=== PATIENT | female | born 2005 | race Caucasian/White ===

== ENCOUNTER 2023-08-15 18:10 | Emergency (ER) | payer OTHER ==
[2023-08-15 18:33] VITALS: TEMP 98.1
--- NOTE | 2023-08-15 19:16 | ED ---
General Adult HPI - General Source: patient, RN notes reviewed Mode of arrival: ambulatory Limitations: no limitations <Jennifer Del Real - Last Filed: 08/15/23 19:12> <Tino Jules - Last Filed: 09/06/23 18:40> - General Chief complaint: Vaginal Bleeding Stated complaint: Vag Bleeding Time Seen by Provider: 08/15/23 19:00 - History of Present Illness Initial comments: Quick note: 18-year-old female presents to the emergency department for evaluation of vaginal bleeding. Patient states that this has been going on for around 2 weeks. She notes that today the bleeding has gotten significantly worse. She admits to some lightheadedness. (Jennifer Del Real) - Related Data Allergies Allergy/AdvReac Type Severity Reaction Status Date / Time No Known Allergies Allergy Verified 08/15/23 18:33 Review of Systems ROS Other: All systems not noted in ROS Statement are negative. <Jennifer Del Real - Last Filed: 08/15/23 19:12> ROS Other: All systems not noted in ROS Statement are negative. <Tino Jules - Last Filed: 09/06/23 18:40> ROS Statement: Those systems with pertinent positive or pertinent negative responses have been documented in the HPI. Past Medical History Past Medical History: No Reported History History of Any Multi-Drug Resistant Organisms: None Reported Past Surgical History: No Surgical Hx Reported Past Psychological History: No Psychological Hx Reported Smoking Status: Never smoker Past Alcohol Use History: None Reported Past Drug Use History: None Reported <Jennifer Del Real - Last Filed: 08/15/23 19:12> General Exam Limitations: no limitations <Jennifer Del Real - Last Filed: 08/15/23 19:12> Limitations: no limitations General appearance: alert, in no apparent distress Head exam: Present: atraumatic, normocephalic Eye exam: Present: normal appearance. Absent: scleral icterus, conjunctival injection Respiratory exam: Present: normal lung sounds bilaterally. Absent: respiratory distress, wheezes, rales, rhonchi, stridor, accessory muscle use Cardiovascular Exam: Present: regular rate, normal rhythm, normal heart sounds. Absent: systolic murmur, diastolic murmur, rubs, gallop GI/Abdominal exam: Present: soft. Absent: distended, tenderness, guarding, rebound, rigid, mass Extremities exam: Present: normal inspection, normal capillary refill. Absent: pedal edema, calf tenderness Back exam: Present: normal inspection. Absent: CVA tenderness (R), CVA tenderness (L) Neurological exam: Present: alert Skin exam: Present: warm, dry, intact, normal color. Absent: rash <Tino Jules - Last Filed: 09/06/23 18:40> - General Exam Comments Initial Comments: Visual Physical Exam Vital signs reviewed General: Well-appearing, nontoxic, no acute distress. Head: Normocephalic, atraumatic Eyes: PERRLA, EOMI ENT: Airway patent Chest: Nonlabored breathing Skin: No visual rash, normal skin tone Neuro: Alert and oriented 3 Musculoskeletal: No gross abnormalities (Jennifer Del Real) Course Vital Signs 08/15/23 08/15/23 08/15/23 18:31 22:12 23:38 Temperature 98.1 F Pulse Rate 75 77 74 Respiratory 18 18 16 Rate Blood Pressure 147/80 122/81 127/82 O2 Sat by Pulse 99 100 100 Oximetry Medical Decision Making <Jennifer Del Real - Last Filed: 08/15/23 19:12> - Lab Data Result diagrams: 08/15/23 22:10 08/15/23 22:10 <Tino Jules - Last Filed: 09/06/23 18:40> - Medical Decision Making Quick note preformed and electronically signed by Jennifer Del Real PA-C (Jennifer Del Real) The patient had pelvic ultrasound which I interpreted as negative for ovarian torsion Was pt. sent in by a medical professional or institution ([facility], COMPLIANCE REPRESENTATIVE DEALER, urgent care, hospital, or retirement...) When possible be specific @ -[No] Did you speak to anyone other than the patient for history (EMS, parent, family, police, friend...)? What history was obtained from this source @ -[No] Did you review nursing and triage notes (agree or disagree)? Why? @ -[I reviewed and agree with nursing and triage notes] Were old charts reviewed (outside hosp., previous admission, EMS record, old EKG, old radiological studies, urgent care reports/EKG's, retirement records)? Report findings @ -[No old charts were reviewed] Differential Diagnosis (chest pain, altered mental status, abdominal pain women, abdominal pain men, vaginal bleeding, weakness, fever, dyspnea, syncope, headache, dizziness, GI bleed, back pain, seizure, CVA, palpatations, mental health, musculoskeletal)? @ -[Differential Vaginal Bleeding: Spontaneous , threatened , molar , ectopic , bloody show, incompetent cervix, abruptioplacenta, placenta previa, uterine rupture, dysfunctional uterine bleeding, hemorrhage, uterine fibroids, this is not meant to be an all-inclusive list. EKG interpreted by me (3pts min.). @ -[As above] X-rays interpreted by me (1pt min.). @ -[None done] CT interpreted by me (1pt min.). @ -[None done] U/S interpreted by me (1pt. min.). @ -[I interpreted as above What testing was considered but not performed or refused? (CT, X-rays, U/S, labs)? Why? @ -[None] What meds were considered but not given or refused? Why? @ -[None] Did you discuss the management of the patient with other professionals (professionals i.e. , PA, COMPLIANCE REPRESENTATIVE DEALER, lab, RT, psych nurse, professor of social work, bulk tank car unloader, teacher, building drafting officer, case maker)? Give summary @ -[No] Was smoking cessation discussed for >3mins.? @ -[No] Was critical care preformed (if so, how long)? @ -[No] Were there social determinants of health that impacted care today? How? (Homelessness, low income, unemployed, alcoholism, drug addiction, transportation, low edu. Level, literacy, decrease access to med. care, retirement, rehab)? @ -[No] Was there de-escalation of care discussed even if they declined (Discuss DNR or withdrawal of care, Hospice)? DNR status @ -[No] What co-morbidities impacted this encounter? (DM, HTN, Smoking, COPD, CAD, Cancer, CVA, ARF, Chemo, Hep., AIDS, mental health diagnosis, sleep apnea, morbid obesity)? @ -[None] Was patient admitted / discharged? Hospital course, mention meds given and route, prescriptions, significant lab abnormalities, going to OR and other pertinent info. @ -[hospital course] Undiagnosed new problem with uncertain prognosis? @ -[No] Drug Therapy requiring intensive monitoring for toxicity (Heparin, Nitro, Insulin, Cardizem)? @ -[No] Were any procedures done? @ -[No] Diagnosis/symptom? @ -[Acute dysfunctional uterine bleeding Acute, or Chronic, or Acute on Chronic? @ -[Acute Uncomplicated (without systemic symptoms) or Complicated (systemic symptoms)? @ -[Uncomplicated Side effects of treatment? @ -[No] Exacerbation, Progression, or Severe Exacerbation? @ -[No] Poses a threat to life or bodily function? How? (Chest pain, [place], [place], pneumonia, PE, COPD, DKA, ARF, appy, cholecystitis, CVA, Diverticulitis, Homicidal, Suicidal, threat to staff... and all critical care pts) @ -[No] (Tino Jules) - Lab Data Lab Results 08/15/23 08/15/23 08/15/23 Range/Units 21:15 21:15 22:10 WBC 6.3 (4.0-11.0) k/uL RBC 4.25 (3.80-5.40) m/uL Hgb 13.7 (11.4-16.0) gm/dL Hct 41.1 (34.0-46.0) % MCV 96.6 (80.0-100.0) fL MCH 32.1 (25.0-35.0) pg MCHC 33.3 (31.0-37.0) g/dL RDW 12.0 (11.5-15.5) % Plt Count 277 (150-450) k/uL MPV 7.6 Neutrophils % 56 % Lymphocytes % 36 % Monocytes % 4 % Eosinophils % 1 % Basophils % 1 % Neutrophils # 3.5 (1.3-7.7) k/uL Lymphocytes # 2.2 (1.0-4.8) k/uL Monocytes # 0.3 (0-1.0) k/uL Eosinophils # 0.1 (0-0.7) k/uL Basophils # 0.0 (0-0.2) k/uL PT (10.0-12.5) sec INR (<1.2) APTT (22.0-30.0) sec Sodium (137-145) mmol/L Potassium (3.5-5.1) mmol/L Chloride (98-107) mmol/L Carbon Dioxide (22-30) mmol/L Anion Gap mmol/L BUN (7-17) mg/dL Creatinine (0.52-1.04) mg/dL Est GFR (CKD-EPI)AfAm (>60 ml/min/1.73 sqM) Est GFR (CKD-EPI)NonAf (>60 ml/min/1.73 sqM) Glucose (74-99) mg/dL Calcium (8.4-10.2) mg/dL Total Bilirubin (0.2-1.3) mg/dL AST (14-36) U/L ALT (4-34) U/L Alkaline Phosphatase (38-126) U/L Total Protein (6.3-8.2) g/dL Albumin (3.5-5.0) g/dL Urine Color Colorless Urine Appearance Clear (Clear) Urine pH 7.0 (5.0-8.0) Ur Specific [place] 1.010 (1.001-1.035) Urine Protein Negative (Negative) Urine Glucose (UA) Negative (Negative) Urine Ketones Negative (Negative) Urine Blood Large H (Negative) Urine Nitrite Negative (Negative) Urine Bilirubin Negative (Negative) Urine Urobilinogen <2.0 (<2.0) mg/dL Ur Leukocyte Esterase Negative (Negative) Urine RBC >182 H (0-5) /hpf Urine WBC 3 (0-5) /hpf Ur Squamous Epith Cells 2 (0-4) /hpf Hyaline Casts 1 (0-2) /lpf Urine HCG, Qual Not Detected (Not Detectd) Blood Type Blood Type Recheck Bld Type Recheck Status Antibody Screen Spec Expiration Date 08/15/23 08/15/23 08/15/23 Range/Units 22:10 22:10 22:10 WBC (4.0-11.0) k/uL RBC (3.80-5.40) m/uL Hgb (11.4-16.0) gm/dL Hct (34.0-46.0) % MCV (80.0-100.0) fL MCH (25.0-35.0) pg MCHC (31.0-37.0) g/dL RDW (11.5-15.5) % Plt Count (150-450) k/uL MPV Neutrophils % % Lymphocytes % % Monocytes % % Eosinophils % % Basophils % % Neutrophils # (1.3-7.7) k/uL Lymphocytes # (1.0-4.8) k/uL Monocytes # (0-1.0) k/uL Eosinophils # (0-0.7) k/uL Basophils # (0-0.2) k/uL PT 10.9 (10.0-12.5) sec INR 1.0 (<1.2) APTT 26.6 (22.0-30.0) sec Sodium 139 (137-145) mmol/L Potassium 4.1 (3.5-5.1) mmol/L Chloride 104 (98-107) mmol/L Carbon Dioxide 24 (22-30) mmol/L Anion Gap 11 mmol/L BUN 9 (7-17) mg/dL Creatinine 0.57 (0.52-1.04) mg/dL Est GFR (CKD-EPI)AfAm >90 (>60 ml/min/1.73 sqM) Est GFR (CKD-EPI)NonAf >90 (>60 ml/min/1.73 sqM) Glucose 92 (74-99) mg/dL Calcium 9.4 (8.4-10.2) mg/dL Total Bilirubin 0.6 (0.2-1.3) mg/dL AST 28 (14-36) U/L ALT 18 (4-34) U/L Alkaline Phosphatase 99 (38-126) U/L Total Protein 7.9 (6.3-8.2) g/dL Albumin 5.0 (3.5-5.0) g/dL Urine Color Urine Appearance (Clear) Urine pH (5.0-8.0) Ur Specific [place] (1.001-1.035) Urine Protein (Negative) Urine Glucose (UA) (Negative) Urine Ketones (Negative) Urine Blood (Negative) Urine Nitrite (Negative) Urine Bilirubin (Negative) Urine Urobilinogen (<2.0) mg/dL Ur Leukocyte Esterase (Negative) Urine RBC (0-5) /hpf Urine WBC (0-5) /hpf Ur Squamous Epith Cells (0-4) /hpf Hyaline Casts (0-2) /lpf Urine HCG, Qual (Not Detectd) Blood Type O Positive Blood Type Recheck No Previous Record Bld Type Recheck Status CABO Indicated Antibody Screen NEGATIVE Spec Expiration Date 08/18/20232309 Disposition <Jennifer Del Real - Last Filed: 08/15/23 19:12> Is patient prescribed a controlled substance at d/c from ED?: No <Tino Jules - Last Filed: 09/06/23 18:40> Clinical Impression: Dysfunctional uterine bleeding Disposition: HOME SELF-CARE Condition: Good Instructions (If sedation given, give patient instructions): Dysmenorrhea (ED) Referrals: Nonstaff,Physician [REFERRING] - 1-2 days
--- NOTE | 2023-08-15 20:58 | US ---
EXAMINATION TYPE: US transvaginal DATE OF EXAM: 08/15/2023 COMPARISON: NONE CLINICAL INDICATION: Female, 18 years old with history of bleeding; Vaginal bleeding with clots x 14 days. Weight loss. Patient states she took a plan B on 07/12/2023. G0. TECHNIQUE: Transvaginal (TV). Date of LMP: 07/15/2023 EXAM MEASUREMENTS: Uterus: 6.8 x 4.2 x 3.3 cm Endometrial Stripe: 1.21 cm Right Ovary: 3.7 x 3.4 x 2.5 cm Left Ovary: 2.7 x 1.7 x 1.5 cm 1. Uterus: Anteverted 2. Endometrium: Measures 1.21 cm, appears heterogeneous, patient has had irregular bleeding. LMP was 07/15/2023. 3. Right Ovary: *Anechoic area seen: 3.4 x 3.2 x 2.3 cm. 4. Left Ovary: Follicles seen. Spectral, color and waveform doppler imaging shows arterial and venous flow within the ovaries. 5. Bilateral Adnexa: Free fluid seen within bilateral adnexa. 6. Posterior cul-de-sac: Free fluid seen within. IMPRESSION: 1. No evidence for intrauterine gestation. Correlate with serum beta-hCG. 2. Endometrium within normal limits for patient's age. 3. Appropriate arterial and spectral waveforms to the ovaries. 4. Right ovarian cyst measuring up to 3.4 cm.
[2023-08-15 21:42] LABS: Appearance,Urine Clear (Clear); Bilirubin,Urine Negative (Negative); Blood,Urine Large (Negative); Color,Urine Colorless; Glucose,Urine (UA) Negative (Negative); Hyaline Casts,Urine 1 /lpf (0-2); Ketones,Urine Negative (Negative); Leukocyte Esterase,Urine Negative (Negative); Nitrite,Urine Negative (Negative); Protein,Urine Negative (Negative); RBC,Urine >182 /hpf (0-5); Squamous Epithelial Cell,Urine 2 /hpf (0-4); Urobilinogen,Urine <2.0 mg/dL (<2.0); WBC,Urine 3 /hpf (0-5)
[2023-08-15 22:45] LABS: Basophils % (A) 1 %; Eosinophils # (A) 0.1 k/uL (0-0.7); Eosinophils % (A) 1 %; HCT 41.1 % (34.0-46.0); HGB 13.7 gm/dL (11.4-16.0); Lymphocytes # (A) 2.2 k/uL (1.0-4.8); Lymphocytes % (A) 36 %; MCH 32.1 pg (25.0-35.0); MCHC 33.3 g/dL (31.0-37.0); MCV 96.6 fL (80.0-100.0); Mean Platelet Volume 7.6; Monocytes # (A) 0.3 k/uL (0-1.0); Monocytes % (A) 4 %; Neutrophils # (A) 3.5 k/uL (1.3-7.7); Neutrophils % (A) 56 %; Platelet Count 277 k/uL (150-450); RBC 4.25 m/uL (3.80-5.40); WBC 6.3 k/uL (4.0-11.0)
[2023-08-15 23:05] LABS: Partial Thromboplastin Time 26.6 sec (22.0-30.0); Prothrombin Time 10.9 sec (10.0-12.5)
[2023-08-15 23:07] LABS: ALT 18 U/L (4-34); AST 28 U/L (14-36); African American GFR (CKD) >90 (>60 ml/min/1.73 sqM); Alkaline Phosphatase 99 U/L (38-126); Anion Gap 11 mmol/L; Blood Urea Nitrogen 9 mg/dL (7-17); Calcium 9.4 mg/dL (8.4-10.2); Carbon Dioxide 24 mmol/L (22-30); Chloride 104 mmol/L (98-107); Glucose 92 mg/dL (74-99); Non-African American GFR(CKD) >90 (>60 ml/min/1.73 sqM); Potassium 4.1 mmol/L (3.5-5.1); Sodium 139 mmol/L (137-145); Total Bilirubin 0.6 mg/dL (0.2-1.3); Total Protein 7.9 g/dL (6.3-8.2)
[2023-08-15 23:38] VITALS: BP 127/82; PULSE 74; RESP 16
== END 2023-08-15 23:43 | disposition home or self-care (01) ==
LOC: EC 18:10
DX: N93.8 Other specified abnormal uterine and vaginal bleeding (principal); N83.201 Unspecified ovarian cyst, right side
CPT/HCPCS: 36415; 76830; 80053; 81001; 81025; 85025; 85610; 85730; 86850; 86900; 86901; 93975; 99284